=== PATIENT | female | born 1935 | race Caucasian/White ===

== ENCOUNTER 2017-10-11 17:30 | Inpatient (IN) ==
[2017-10-11] MEDS ORDERED: VANCOMYCIN - PHARMACY CONSULT MC ONE (17:46)
[2017-10-11] MEDS ORDERED: ONDANSETRON 4 MG/2 ML INJECTION IVP PRN (17:49)
[2017-10-11] MEDS: SALINE FLUSH 10ml SYRINGE IVF PRN (19:08)
[2017-10-11] MEDS: NS FLUSH BAG 500ml IV PRN (19:09)
[2017-10-11] MEDS: PIPERACILLIN/TAZOBACTAM 3.375 GM in NS 100 ML IV SCH (19:09)
--- NOTE | 2017-10-11 19:19 | History & Physical Report ---
History of Present Illness Date: 10/11/17 Chief complaint: abdominal pain HPI: Mrs. Layton is an 82-year-old patient of Dr. Fernando who presented to his office today for instruction of Lovenox injections. When she lifted up her shirt to show the nurse the area where she had been having some pain and swelling from her recent paracentesis, she noticed significant erythema that she had not noticed before. Dr. Fernando was summoned to see the patient and contacted Dr. Butler for a direct admission for treatment of abdominal wall cellulitis/ possible peritonitis. 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 She has been to see Dr. Alvarez who has recommended palliative course of chemotherapy. Has not yet started chemotherapy and is scheduled to get her port put in on 10/16/17. She had a paracentesis performed on 10/08/17 with removal of 1400 cc of fluid. Review of Systems All systems PM: 10-point ROS was reviewed, no additional remarkable complaints except (pain in abdomen with palpation or movement) Past Medical History Medical History: Medical History (Last Updated 10/10/17 @ 15:01 by Vadim Washington MD) Pleural effusion (Chronic) Lung nodule (Chronic) Primary cancer of peritoneum (Chronic) Peritoneal caner Date at Diagnosis- 09/10/2017 age at diagnosis- 81 TNM staging- T1c3, NX, pM1b, abdomen, Staging type- Clinical FIGO staging- IVB Stage at diagnosis- IVB Histology- Adenocarcinoma, grade x Breast cancer (Chronic) Date of Diagnosis- 06/20/2011 Location- Right breast upper-outer quadrant Stage at Diagnosis- 0, DCIS TNM staging- TIS Clinical N, N0, M0 Fracture of pelvis (Acute) Onset Date: ~04/2016 Osteoporosis (Chronic) Onset Date: ~2001 Has osteoporosis with poor tolerance of Evista and Fosamax. 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 * Colonoscopy - 04/[address] Adonis Fernando [place] [facility] [place]. * Right Cataract removal - ~ 2012 in [place], [place]. * Hysteroscopy and BSO - 2012 - in [place], [place]. Cystic ovarian disease. * Mastectomy right breast - [address] Barrera [place] [facility] [place], [place] For ductal carcinoma in situ. * Laparoscopic Cholecystectomy - [address] Cates at [facility] [place]. * Left breast biopsy 1997 - at [facility] [place], [place]. Hyperplasia. * Rectocele repair - 1979 at [facility] in [place], [place]. Family History: Family History Father , Age 94 Cardiomegaly Arrhythmia Mother , 95 High blood pressure Early onset Alzheimer's dementia Brother , age 69 - Unknown cause Atrial fibrillation Family History: As Above - Social History Smoking status: Never smoker Alcohol intake frequency: does not drink Household members: spouse Current occupational status: retired Current residence: Apartment/Private Home Social history: Dr Fernando - PCP Dr. Alvarez - onc Medications Home Medications Medication Instructions Recorded Confirmed Type Milk of Magnesia (Magnesium 5 ml PO HS ml 09/25/16 10/10/17 History hydroxide) 400 mg/5 mL oral suspension aspirin 81 mg chewable tablet 1 tab PO Q2D tab 09/25/16 10/10/17 History multivitamin with minerals tablet 1 tab-cap PO DAILY tab 09/25/16 10/10/17 History omega 0-vbg-zly-fish oil 1,000 mg 1 cap PO Q2D cap 09/25/16 10/10/17 History (120 mg-180 mg) capsule Xanax (alprazolam) 0.25 mg tablet 0.25 mg PO BID PRN #60 tab 12/24/16 10/10/17 Rx Prolia 60 mg/mL subcutaneous 60 mg SQ [id number] #1 ml NS 02/27/17 10/10/17 Rx syringe Atenolol [Tenormin] 25 mg PO BID 04/30/17 10/10/17 History digoxin 125 mcg tablet 125 mcg PO DAILY #90 tab 09/11/17 10/10/17 Rx Calcium 500 + D [Os Hector-D 500] 2 tab PO DAILY 10/07/17 10/10/17 History Ibuprofen [Advil] 200 mg PO Q6H PRN 10/07/17 10/10/17 History Losartan Potassium [Cozaar] 1 - 2 tab PO DAILY 10/07/17 10/10/17 History Warfarin Sodium [Coumadin] See Label Instructions PO DAILY 10/08/17 10/10/17 Rx #90 tab Prevacid (Lansoprazole) 15 mg 15 mg PO BID PRN cap 10/10/17 10/10/17 History capsule,delayed release enoxaparin 60 mg/0.6 mL 60 mg SQ DAILY #5 each 10/11/17 Rx subcutaneous syringe Allergies Allergy/AdvReac Type Severity Reaction Status Date / Time alendronate sodium AdvReac Intermediate Headache Verified 10/11/17 19:32 [From Fosamax] and nausea raloxifene [From Evista] AdvReac Intermediate Headache Verified 10/11/17 19:32 gluten AdvReac Mild NAUSEA/ABD Verified 10/11/17 19:32 DISCOMFORT Exam Vital Signs: Temperature 97.0 F 10/11/17 18:39 Pulse Rate 90 10/11/17 18:39 Respiratory Rate 18 10/11/17 18:39 Blood Pressure 145/66 H 10/11/17 18:39 Pulse Oximetry 100 10/11/17 18:39 - Constitutional Present: no acute distress, well nourished, well developed - Routine HEENT Exam Head: Present: normocephalic, atraumatic Eye: Present: EOMI, PERRL ENT: Present: mucous membranes moist, oropharynx clear - Routine Neck Exam Present: supple. Absent: lymphadenopathy, thyromegaly - Routine Respiratory Exam Present: CTA bilaterally. Absent: wheezes - Routine Cardiovascular Exam Present: RRR, no murmur - Routine Abdominal Exam Present: soft, normoactive bowel sounds, tenderness (RLQ. Pt has erythma and warmth in the RLQ and suprapubic area extending to the R upper thigh. She has signifcant tenderness with palpation. She has a firm area centrally which is extremely tender to palpation. ). Absent: distended - Routine Extremities Exam Present: no edema, normal capillary refill - Routine Skin Exam Present: dry, warm - Routine Neurological Exam Present: alert, oriented X3, CN II-XII intact - Routine Psychiatric Exam Present: normal affect, cooperative Results - Labs CBC & Chem 7: 10/11/17 18:51 10/11/17 18:51 Assessment and Plan Assessment and Plan: Assessment Abdominal wall cellulitis w/ possible abscess and/or peritonitis Peritoneal adenocarcinoma Pleural effusion Lung nodule Primary cancer of peritoneum Date at Diagnosis- 09/10/2017 age at diagnosis- 81 TNM staging- T1c3, NX, pM1b, abdomen, Staging type- Clinical FIGO staging- IVB Stage at diagnosis- IVB Histology- Adenocarcinoma, grade x Breast cancer Date of Diagnosis- 06/20/2011 Location- Right breast upper-outer quadrant Stage at Diagnosis- 0, DCIS TNM staging- TIS Clinical N, N0, M0 Fracture of pelvis Onset Date: ~04/2016 Osteoporosis Onset Date: ~2001 Hypertension Chronic atrial fibrillation snf (current) use of anticoagulants Genital atrophy of female Gluten intolerance Plan Admit, IP. Stay expected to exceed two overnights given her abdominal wall infection and comorbidities. Check labs: CBC, CMP, CRP, Lactate, LDH, Mg, Procalcitonin, CA125, BC x2, Dig level, UA Start vancomycin and Zosyn for antimicrobial coverage of abdominal cellulitis vs peritonitis Holding Coumadin for upcoming port placement. Lovenox 60mg BID for a-fib/VTE ppx. Currently NPO for abd/pelvic CT. Gluten free diet after CT. NS at 100cc/hr. Full Code PCP - Dr. Fernando DVT Prophylaxis: SCD's Resuscitation Status: Full Code (does not wish for prolonged intubation) - Physician Narrative Physician: Steve Butler MD Narrative: Date: 10/11/17 Time: 2005 Have independently interviewed and examined pt. Chart reviewed. Case discussed with Dr Fernando, Dr Irvin, and my PA. Care plan developed with my supervision; agree with above. Had therapeutic paracentesis on 10/08 secondary to increasing ascities. Tolerated procure well, but noted some incisional discomfort afterward. That area stay mildly uncomfortable since. More fullness and pain to RLQ near incisional sight. Not having chills, but noticed slight temp elevation today. Went to clinic to have Lovenox injection and then found redness to skin across RLQ extending into vulvar area and down leg. Elevated mass at site, tender to palpation. Does have discomfort in RLQ with movement of right leg. No recent trauma. Breathing well (improved post paracentesis). No chest pressure or palpitations. No nausea, but appetite has been decreasing. Is to have port placement next week so she can start palliative chemotherapy. Lungs: clear bilaterally CV: irregularly irregular EXT: no edema MSE: awake alert appropriate AB: Diffuse fine erythema of fight lower quadrant. Does extend down right leg. Noticeable mass about size of palm, raise about 1 cm, with healed incisional wound at center consistent with recent paracentesis. No purulent material expressed. Very tender to palpation and warm to touch. Plan: Inpatient treatment for suspected ab wall abscess with surrounding cellulitis. Zosyn/Vanco for skin coverage. With underlying peritoneal CA with obtain CT ab/pelvis with oral/IV contrast to further identify ab wall mass. Case discussed with Dr Irvin (covering for Dr Alvarez) who will see patient in consultation. Suspect will need surgical incision and drainage if abscess identified. IVF for renal protection. Will start Lovenox for Afib and DVT prevention (at risk for CVT due to Cancer). Not seeing signs of sepsis at this time. Monitor tele and lab. Full code per her requests. Care to return to Dr Fernando at time of discharge from [facility] Hospital Course Summary Disclaimer: The visit summary below is not to be considered part of the above Progress Note. Hospital Course: 10/11/17 Admit, IP. Stay expected to exceed two overnights given her abdominal wall infection and comorbidities. Check labs: CBC, CMP, CRP, Lactate, LDH, Mg, Procalcitonin, CA125, BC x2, Dig level, UA. Start vancomycin and Zosyn for antimicrobial coverage of abdominal cellulitis vs peritonitis. Holding Coumadin for upcoming port placement. Lovenox 60mg BID for a-fib/VTE ppx. Currently NPO for ab/pelvic CT. Gluten free diet after CT. NS at 100cc/hr. Full Code PCP - Dr. Fernando
[2017-10-11] MEDS ORDERED: NS 1,000 ML IV SCH (19:45)
[2017-10-11] MEDS ORDERED: SALINE FLUSH 10ml SYRINGE ONE (19:56)
[2017-10-11] MEDS ORDERED: IOHEXOL 300mg/ml 75ml INJECTION ONE (19:56)
[2017-10-11] MEDS ORDERED: PANTOPRAZOLE 20 MG TABLET PO PRN (20:24)
[2017-10-11] MEDS ORDERED: ALPRAZolam 0.25 MG TABLET PO PRN (20:24)
[2017-10-11] MEDS ORDERED: ACETAMINOPHEN 325 MG TABLET PO PRN (20:25)
[2017-10-11] MEDS ORDERED: BISACODYL 10 MG SUPPOSITORY RECTALLY PRN (20:26)
[2017-10-11] MEDS ORDERED: POLYETHYL GLYCOL 3350 17gm PACKET PO PRN (20:26)
[2017-10-11] MEDS ORDERED: PROCHLORPERAZINE 10 MG/2 ML INJECTION IVP PRN (20:26)
[2017-10-11] MEDS ORDERED: ENOXAPARIN 40 MG/0.4 ML INJECTION SQ SCH (21:00)
[2017-10-11] MEDS: ATENOLOL 25 MG TABLET PO SCH (22:25)
[2017-10-12] MEDS: PIPERACILLIN/TAZOBACTAM 3.375 GM in NS 100 ML IV SCH ×3 (02:20→18:50)
[2017-10-12] MEDS ORDERED: PANTOPRAZOLE 20 MG TABLET PO PRN (07:45)
[2017-10-12] MEDS ORDERED: CALCIUM 500 + VIT D 200 TABLET PO SCH (09:00)
[2017-10-12] MEDS ORDERED: LOSARTAN 50 MG TABLET PO SCH (09:00)
[2017-10-12] MEDS ORDERED: ENOXAPARIN 60 MG/0.6 ML INJECTION SQ SCH (09:15)
[2017-10-12] MEDS: DIGOXIN 125 MCG TABLET PO SCH (09:48)
[2017-10-12] MEDS: OMEGA-3 ACID ESTERS 1 GM CAPSULE PO SCH (09:48)
[2017-10-12] MEDS: MULTI-VIT + MINERAL (Opti-gen) TABLET PO SCH (09:48)
[2017-10-12] MEDS: ATENOLOL 25 MG TABLET PO SCH ×3 (09:48→21:26)
--- NOTE | 2017-10-12 10:31 | Progress Note ---
- Date 10/12/17 Subjective: Raine is about the same as yesterday. She still has a fair amount of pain and tenderness to her right pubis area and this makes movement of her right leg difficult. She states that the degree of erythema is about the same. She denies fever/chills this am. No SOA, chest pain, abd pain, or nausea. Objective Vital signs: Temperature 98.7 F 10/12/17 07:46 Pulse Rate 68 10/12/17 09:48 Respiratory Rate 16 10/12/17 07:46 Blood Pressure 114/65 10/12/17 07:46 Pulse Oximetry 96 10/12/17 07:46 Height/Weight/BMI: Height 1.69 m Weight 61 kg Body Mass Index 20.3 - Constitutional Present: no acute distress, well nourished, well developed, thin - Routine HEENT Exam Head: Present: normocephalic - Routine Respiratory Exam Present: CTA bilaterally - Routine Cardiovascular Exam Present: S1, S2, irregularly irregular - Routine Abdominal Exam Present: soft, normoactive bowel sounds Comments: Right lower pelvic indurated mass, not fluctuant, highly tender, warm to touch and erythematous. Erythema spreads distally into both thighs but is not as bright on the legs comparatively. - Routine Extremities Exam Present: no edema - Routine Skin Exam Present: intact, dry, warm, rash (see above) Results - Labs CBC & Chem 7: 10/12/17 03:53 10/12/17 03:53 Microbiology Results: Microbiology 10/11/17 18:55 Peripheral/Iv Start Blood Culture - Preliminary Culture Initiated - Results Pending 10/11/17 18:51 Peripheral/Iv Start Blood Culture - Preliminary Culture Initiated - Results Pending Assessment and Plan Assessment and Plan: Assessment Abdominal wall cellulitis w/ possible abscess and/or peritonitis Peritoneal adenocarcinoma Pleural effusion Lung nodule Primary cancer of peritoneum Date at Diagnosis- 09/10/2017 age at diagnosis- 81 TNM staging- T1c3, NX, pM1b, abdomen, Staging type- Clinical FIGO staging- IVB Stage at diagnosis- IVB Histology- Adenocarcinoma, grade x Breast cancer Date of Diagnosis- 06/20/2011 Location- Right breast upper-outer quadrant Stage at Diagnosis- 0, DCIS TNM staging- TIS Clinical N, N0, M0 Fracture of pelvis Onset Date: ~04/2016 Osteoporosis Onset Date: ~2001 Hypertension 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 Preliminary report shows fluid density in right lower abdominal wall measuring 1.8x6 cm transverse and 6.5 cm CC. This may represent a rectus sheath hematoma or fluid containing hernia, or infection. CT also shows mild right hydronephrosis. She has a moderate amount of ascites with peritoneal thickening. There are also tiny nodules in the lung bases. Continue vancomycin and Zosyn for antimicrobial coverage of abdominal cellulitis vs peritonitis. Consult Dr. العراقي. WBC normal at 7.1. Afebrile. CRP 53, recheck in am. Holding Coumadin for upcoming port placement. Lovenox 60mg for a-fib/VTE ppx. A -fib with variable rates, 48-90. Diet advanced. DC IVF. D/W Dr. Butler. DVT Prophylaxis: Lovenox GI Prophylaxis: Protonix Resuscitation Status: Full Code - Time spent with patient Time with patient PN: 25 minutes - Physician Narrative Physician: Steve Butler MD Narrative: Date: 10/12/17 Time: 1353 Have independently interviewed and examined pt. Chart reviewed. Case discussed with Dr العراقي and my MEDIA RECONCILIATION SPECIALIST. Care plan developed with my supervision; agree with above. Doing better today. Reporting less pain to ab wall and leg-can move more without discomfort, not as tender to touch. Redness decreasing. No f/c. Not feeling the nausea she was yesterday. Breathing well-not SOA or congested. No chest pressure or pain. Lungs: decreased breath sound, no distress CV: irregularly irregular AB: soft nt/nd MSE: awake alert appropriate SKIN: interval decrease in intensity of erythema to ab wall/leg. Much less tender to palpation. Mass with slight decrease as well. Plan: Dr العراقي consulted and case discussed with him. He did do aspiration of mass-no purulent material found. Will continue with IV antibiotics for skin coverage. Monitor mass for changes. Oral intake at baseline, creatinine stable post contrast-can d/c IVF. Monitor lab. Continue with supportive care. Hospital Course Summary Disclaimer: The visit summary below is not to be considered part of the above Progress Note. Hospital Course: 10/11/17 Admit, IP. Stay expected to exceed two overnights given her abdominal wall infection and comorbidities. Check labs: CBC, CMP, CRP, Lactate, LDH, Mg, Procalcitonin, CA125, BC x2, Dig level, UA. Start vancomycin and Zosyn for antimicrobial coverage of abdominal cellulitis vs peritonitis. Holding Coumadin for upcoming port placement. Lovenox 60mg BID for a-fib/VTE ppx. Currently NPO for ab/pelvic CT. Gluten free diet after CT. NS at 100cc/hr. Full Code PCP - Dr. Fernando 10/12/17 CT scan personally reviewed. Preliminary report shows fluid density in right lower abdominal wall measuring 1.8x6 cm transverse and 6.5 cm CC. This may represent a rectus sheath hematoma or fluid containing hernia, or infection. CT also shows mild right hydronephrosis. She has a moderate amount of ascites with peritoneal thickening. There are also tiny nodules in the lung bases. Consult Dr. العراقي secondary to mass to abdominal wall. Dr Velázquez did aspirate mass - no purulent material expressed. Recommends continuing antibiotics and continued monitoring. Continue vancomycin and Zosyn for antimicrobial coverage of abdominal cellulitis. WBC normal at 7.1. Afebrile. CRP 53, recheck in am. Holding Coumadin for upcoming port placement. Lovenox 60mg for a-fib/VTE ppx. A -fib with variable rates, 48-90. Diet advanced. DC IVF as renal status stable post IV contrast and taking oral well..
--- NOTE | 2017-10-12 10:47 | Pharmacy Consult-Antibiotics ---
Pharmacy Consult-Vancomycin - Laboratory Information WBC 7.1 T/MM3 (4.5-11.0) 10/12/17 03:53 BUN 16.0 MG/DL (7-17) 10/12/17 03:53 Creatinine 0.7 mg/dL (0.7-1.2) 10/12/17 03:53 Procalcitonin < 0.05 NG/ML 10/11/17 18:51 - Consult Information vancomycin consult: 82 y.o. F started on Vancomycin protocol for Cellulitis of abdominal wall. goal trough level= 15 to 20 mcg/ml Will give Vancomycin 1.5 gm IV Q18H. Pharmacy will monitor and adjust, Thank you, Ching [facility]
[2017-10-12] MEDS ORDERED: ATENOLOL 25 MG TABLET PO PRN (11:23)
[2017-10-12] MEDS ORDERED: LOSARTAN 50 MG TABLET PO PRN (11:24)
--- NOTE | 2017-10-12 12:52 | Consultation ---
DATE OF SERVICE 10/12/2017 FINDINGS Mrs. Layton is an 82-year-old female whom I was asked to see today as a result of a possible abscess involving her right inguinal region with associated cellulitis. Mrs. 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 She apparently earlier this week had undergone a paracentesis through Radiology on Saturday. Patient states that she had more "pain with this one" than she did her original paracentesis. The patient states that when she had left she had noted pain and some swelling within her inguinal region that she had not noted on her first paracentesis. The patient states that she was scheduled to receive Lovenox injection through her primary care physician's office. She states that she had presented recently to her PCP's office for a Lovenox injection and when her "shirt was lifted up the doctor became concerned." She was found to have a marked element of redness and tenderness involving her lower abdomen. Patient was subsequently admitted to the hospital for further care. PAST MEDICAL HISTORY CHRONIC ILLNESSES/SYSTEM DISORDERS History for breast cancer. History for osteoporosis. History for hypertension. History for chronic atrial fibrillation. History for peritoneal carcinomatosis. PAST SURGICAL HISTORY Colonoscopy. Cataract extraction. Hysteroscopy and BSO. Right mastectomy. Laparoscopic cholecystectomy. Prior left breast biopsy. MEDICATIONS Milk of Magnesia on a p.r.n. basis. Aspirin. Multivitamin. Fish oil. Xanax. Prolia 60 mg/mL. Atenolol. Digoxin. Calcium. Ibuprofen. Losartan. Coumadin. Prevacid. Lovenox injections. For complete doses and frequencies please refer to EMR. ALLERGIES Fosamax. Evista. SOCIAL HISTORY The patient has no alcohol or tobacco use. FAMILY HISTORY Father at age 94 from probable heart disease. Mother at 95. She did have a component of Alzheimer and hypertension. Her brother passed at 69 of unknown causes. REVIEW OF SYSTEMS Ten-point review of systems was reviewed. No additional abnormalities noted except as stated above in HPI and Past Medical History. PHYSICAL EXAMINATION GENERAL: Patient is an 82-year-old female who did not appear to be in acute distress this morning. VITAL SIGNS: Temperature 98.7, pulse 68, respirations 16, blood pressure 114/64 , SAO2 96% on room air. HEENT: Normocephalic. Pupils are equally round and react to light and accommodation. CHEST: Clear to auscultation bilaterally. HEART: Regular rate and rhythm. Normal S1 and S2 without gallops, murmurs or clicks. ABDOMEN: Soft, nontender. Attention was focused to the lower abdomen. One could see her prior puncture site within the right inguinal region from her prior paracentesis. The entrance site appears to be a few centimeters above the inguinal ligament. There is significant erythema and an element of prominence involving the right inguinal region extending in towards the mons pubis region as well as onto the right medial thigh region. Palpation of this area does reveal an area of firmness. Skin is warm to the touch. The erythema , as stated above, does extend into the right medial thigh as well as over towards the right anterior iliac spine and mons pubis region. I was really unable to appreciate any fluctuant area but more of an area of firmness. EXTREMITIES: Without clubbing, cyanosis, or edema. NEURO: Cranial nerves II-XII grossly intact. Patient is without focal motor or sensory deficits. LABORATORY/RADIOGRAPHIC EVALUATION The patient had a CBC today and white count is 7.1. Hemoglobin is 12.2. BMP obtained and found to be without marked abnormalities. CT scan of her abdomen and pelvis was obtained. I did review this CT scan personally. One can see a density within the right inguinal region corresponding with her physical abnormality within the anatomic location of the lower aspect of the rectus sheath. To me this appears to be more consistent with that of a hematoma. It does not appear to be indicative of that of an abscess. Dictated report from our radiologist is pending at time of dictation. One also can see on CT scan evidence for her known abdominal carcinomatosis. ASSESSMENT 82-year-old female with abdominal carcinomatosis, status post paracentesis with development of probable hematoma within right inguinal region with associated cellulitis. PLAN Proceed with aspiration of right inguinal mass to rule out underlying abscess. Continue with ongoing antibiotic therapy for cellulitis. It was my recommendation to the patient that this morning we go ahead and proceed with aspiration of this mass within the right inguinal region to rule out an underlying abscess. I informed the patient and her that if I was able to aspirate noreen purulence that would go ahead at the bedside today and proceed with incision and drainage of the underlying abscess. If, on the other hand, there was no purulent material present upon aspiration would then continue with ongoing broad-spectrum antibiotics. The patient and her understood and agreed with proposed plan. Skin overlying the area of prominence and erythema was prepped with Betadine. 1% lidocaine was then injected overlying the area of concern. An 18-gauge needle was then introduced through the area of analgesia and into the underlying mass with aspiration. Some old blood was obtained but there was no evidence for noreen purulent material. Patient tolerated the procedure without difficulty. I informed the patient and her that there does not appear to be any evidence for an underlying abscess and I would recommend that we continue with ongoing broad- spectrum antibiotics. Hopefully over the next 24 to 48 hours this cellulitis will dissipate/resolve on its own. I agree with current antibiotic choice. Patient currently is on Zosyn 3.375 g IV q.8h. MTDD
--- NOTE | 2017-10-12 13:42 | Consult Note ---
Oncology HPI - Data of Consult Patient: known to practice within the last 3 years Consult date: 10/12/17 Requesting Physician: Steve Butler MD Primary Care Provider: Adonis Fernando MD - Consult Narrative Reason for consult: abdominal carcinomatosis History of present illness: August of this year the patient developed increasing abdominal girth. She underwent paracentesis that showed adenocarcinoma. CEA 125 was 1600. She was seen by Dr. Alvarez with the plan to have Port-A-Cath followed by initiation of palliative chemotherapy with carboplatinum and Taxol. Port-A-Cath was scheduled to be done next week. Patient has chronic atrial fibrillation and anticoagulated with Coumadin now with Lovenox. She had paracentesis on 10/02/17. Following the paracentesis she had increasing pain in the right inguinal area right groin. She presented to Dr. Fernando's office yesterday and was found to have redness and swelling extending down into the right thigh and up the abdominal wall. She was admitted on 10/11/17 and begun on antibiotics. She was seen by Dr. العراقي today and he did an aspiration of the area of swelling and obtained old blood with no noreen purulent material Review of Systems - Constitutional Constitutional: Present: chills, fatigue, fever(s) - EENT Eyes: Absent: pain Nose: Absent: nosebleeds Mouth/Throat: Absent: sore throat, sores - Cardiovascular Cardiovascular: Present: palpitations. Absent: chest pain - Respiratory Respiratory: Absent: cough, dyspnea - Gastrointestinal Gastrointestinal: Present: early satiety, nausea, other (abdominal fullness) - Genitourinary Genitourinary: Absent: hematuria (nocturia 2) - Musculoskeletal Musculoskeletal: Present: myalgias - Integumentary/Breasts Integumentary: Present: rash. Absent: alopecia - Neurological Neurological: Absent: abnormal speech, headache(s) - Endocrine Endocrine: Present: palpitations - Hematologic/Lymphatic Hematologic/Lymphatic: Present: easy bleeding, easy bruising PFS Patient Stated Medical History Migraine Yes: OCCASIONAL Cataracts Yes: right removed Cardiac Arrhythmia Yes: at.fib. Hypertension Yes Sleep Apnea No Ulcer Yes Other GI Yes: abdominal cancer-primary peritoneal carcinoma Osteoarthritis Yes Other Musculoskeletal Yes: hx fractured pelvis and left wrist Blood Transfusions Yes: years ago Post Menopausal Yes Clinic Medical History (Last Updated 10/10/17 @ 15:01 by Vadim Washington MD) Pleural effusion (Chronic Medical) Lung nodule (Chronic Medical) Primary cancer of peritoneum (Chronic Medical) Peritoneal caner Date at Diagnosis- 09/10/2017 age at diagnosis- 81 TNM staging- T1c3, NX, pM1b, abdomen, Staging type- Clinical FIGO staging- IVB Stage at diagnosis- IVB Histology- Adenocarcinoma, grade x Breast cancer (Chronic Medical) Date of Diagnosis- 06/20/2011 Location- Right breast upper-outer quadrant Stage at Diagnosis- 0, DCIS TNM staging- TIS Clinical N, N0, M0 Fracture of pelvis (Acute Medical ~04/2016) Osteoporosis (Chronic Medical ~2001) Has osteoporosis with poor tolerance of Evista and Fosamax. 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 * Colonoscopy - 04/[address] Adonis Fernando at [facility] in [place], [place]. * Right Cataract removal - ~ 2012 in [place], [place]. * Hysteroscopy and BSO - 2012 - in [place], [place]. Cystic ovarian disease. * Mastectomy right breast - [address] Barrera [address] [facility] in [place], [place]. ductal carcinoma in situ. * Laparoscopic Cholecystectomy - [address] Cates [address] [facility] in [place], [place]. * Left breast biopsy 1997 - at [facility] in [place], [place]. Hyperplasia. * Rectocele repair - 1979 at [facility] in [place], [place]. Family History: Family History (Last Updated 10/10/17 @ 14:21 by Lisa Crook) Father , Age 94 Cardiomegaly Arrhythmia Mother , 95 High blood pressure Early onset Alzheimer's dementia Brother , age 69 - Unknown cause Atrial fibrillation Son at [place]. Probable alcohol related - Social History Smoking status: Never smoker second hand exposure: No Substance use type: does not use Alcohol intake: never Alcohol intake frequency: does not drink Housing: house Household members: spouse Current occupational status: retired Does patient use chewing tobacco?: No Current residence: Apartment/Private Home Medications Home Medications Medication Instructions Recorded Confirmed Type Milk of Magnesia (Magnesium 5 ml PO HS ml 09/25/16 10/10/17 History hydroxide) 400 mg/5 mL oral suspension aspirin 81 mg chewable tablet 1 tab PO Q2D tab 09/25/16 10/10/17 History multivitamin with minerals tablet 1 tab-cap PO DAILY tab 09/25/16 10/10/17 History omega [id number] oil 1,000 mg 1 cap PO Q2D cap 09/25/16 10/10/17 History (120 mg-180 mg) capsule Xanax (alprazolam) 0.25 mg tablet 0.25 mg PO BID PRN #60 tab 12/24/16 10/10/17 Rx Prolia 60 mg/mL subcutaneous 60 mg SQ [id number] #1 ml NS 02/27/17 10/10/17 Rx syringe Atenolol [Tenormin] 25 mg PO BID 04/30/17 10/10/17 History digoxin 125 mcg tablet 125 mcg PO DAILY #90 tab 09/11/17 10/10/17 Rx Calcium 500 + D [Os Hector-D 500] 2 tab PO DAILY 10/07/17 10/10/17 History Ibuprofen [Advil] 200 mg PO Q6H PRN 10/07/17 10/10/17 History Losartan Potassium [Cozaar] 1 - 2 tab PO DAILY 10/07/17 10/10/17 History Warfarin Sodium [Coumadin] See Label Instructions PO DAILY 10/08/17 10/10/17 Rx #90 tab Prevacid (Lansoprazole) 15 mg 15 mg PO BID PRN cap 10/10/17 10/10/17 History capsule,delayed release enoxaparin 60 mg/0.6 mL 60 mg SQ DAILY #5 each 10/11/17 Rx subcutaneous syringe Allergies Allergy/AdvReac Type Severity Reaction Status Date / Time alendronate sodium AdvReac Intermediate Headache Verified 10/11/17 19:32 [From Fosamax] and nausea raloxifene [From Evista] AdvReac Intermediate Headache Verified 10/11/17 19:32 gluten AdvReac Mild NAUSEA/ABD Verified 10/11/17 19:32 DISCOMFORT Exam Vital signs: Temperature 98.7 F 10/12/17 07:46 Pulse Rate 68 10/12/17 09:48 Respiratory Rate 16 10/12/17 07:46 Blood Pressure 114/65 10/12/17 07:46 Pulse Oximetry 96 10/12/17 07:46 - Constitutional no acute distress, well developed - Routine HEENT Exam Head: Present: normocephalic Eye: Present: EOMI, PERRL ENT: Present: mucous membranes moist - Routine Neck Exam Present: supple. Absent: lymphadenopathy - Routine Respiratory Exam Present: CTA bilaterally. Absent: rales - Routine Cardiovascular Exam Present: no murmur. Absent: RRR - Routine Abdominal Exam Present: soft, tenderness, distended Comments: Redness right lower one half of abdomen with edema of skin. Edema and redness extending down into the right thigh over the femoral vessels. - Routine Back/Spine/Pelvis Exam Back/Spine: Absent: muscle spasm - Routine Skin Exam Present: dry, warm Comments: Redness and swelling present in the right abdominal wall extending down into the right upper thigh - Routine Neurological Exam Present: alert, CN II-XII intact - Routine Psychiatric Exam Present: normal affect Oncology Results - Labs CBC & Chem 7: 10/12/17 03:53 10/12/17 03:53 Labs: Short CBC 10/11/17 10/12/17 Range/Units 18:51 03:53 WBC 7.5 7.1 (4.5-11.0) T/MM3 Hgb 12.7 12.2 (12-16) GM/DL Hct 38.5 37.9 (36-46) % Plt Count 250 261 (130-400) T/MM3 [facility] 10/11/17 10/12/17 18:51 03:53 Sodium 138 138 Potassium 3.8 4.2 Chloride 102 105 Carbon Dioxide 25 24 BUN 22.0 H 16.0 Creatinine 0.8 0.7 Glucose 129 H 89 Calcium 9.3 8.5 D Liver Function 10/11/17 Range/Units 18:51 Total Bilirubin 0.90 (0.20-1.30) MG/DL AST 31 (14-36) U/L ALT 15 (1-35) U/L Alkaline Phosphatase 67 (38-126) U/L Albumin 3.9 (3.5-5.0) g/dL Urine 10/11/17 Range/Units 19:22 Urine Color Yellow (YELLOW) Urine Clarity Clear Urine pH 6.0 (5.0-8.0) Ur Specific [place] 1.020 (1.015-1.025) Urine Protein Negative (NEGATIVE) Urine Glucose (UA) Negative (NEGATIVE) - Impressions Laboratory Tests 09/17/17 10/11/17 10/11/17 15:13 18:51 18:51 WBC Hgb Plt Count Neut % (Auto) Neut # (Auto) 5.7 Creatinine Calcium Lactate Dehydrogenase 478 C-Reactive Protein 53.0 H CA 125 Antigen 1620 H 10/11/17 10/12/17 10/12/17 18:51 03:53 03:53 WBC 7.1 Hgb 12.2 Plt Count 261 Neut % (Auto) 70.1 H Neut # (Auto) 5.0 Creatinine 0.7 Calcium 8.5 D Lactate Dehydrogenase C-Reactive Protein CA 125 Antigen 1800 H - Imaging and Cardiology CT scan - abdomen Additional comments: Images reviewed. There is probable hematoma or soft tissue mass present in the right lower abdomen. Significant amount of distention of the rectal area. Ascites is present. Assessment and Plan Assessment and Plan: Cellulitis of right lower quadrant after paracentesis. From the skin reaction suspect it would be a Streptococcus. Currently on antibiotics and improving 2. Abdominal carcinomatosis with positive ascitic fluid for adenocarcinoma and elevated CEA 125 of 1800 presently. This is consistent with an ovarian carcinoma. She did have cystic ovaries removed in 2000 with negative pathology per her report. Will await vascular access prior to starting therapy. Plan is palliative chemotherapy with carboplatinum and Taxol. Infection will need to be in control before this is initiated. Also vascular access will be a significant aspect of her care as her veins appear to be fairly small 3. Need for vascular access. This cannot be placed with active infection. Hopefully later next week this will be able to be placed. 4. Atrial fibrillation with anticoagulation Recommendations antibiotics Supportive care Vascular access when infection controlled Chemotherapy after vascular access obtained
[2017-10-12] MEDS: LOSARTAN 50 MG TABLET PO SCH (21:25)
[2017-10-12] MEDS: CALCIUM 500 + VIT D 200 TABLET PO SCH (21:25)
[2017-10-13] MEDS: ATENOLOL 25 MG TABLET PO SCH ×3 (00:14→21:21)
[2017-10-13] MEDS: LOSARTAN 50 MG TABLET PO SCH ×2 (00:16→21:22)
[2017-10-13] MEDS: PIPERACILLIN/TAZOBACTAM 3.375 GM in NS 100 ML IV SCH ×3 (02:26→18:06)
[2017-10-13] MEDS: ENOXAPARIN 60 MG/0.6 ML INJECTION SQ SCH (08:59)
[2017-10-13] MEDS: CALCIUM 500 + VIT D 200 TABLET PO SCH ×2 (08:59→21:22)
[2017-10-13] MEDS: DIGOXIN 125 MCG TABLET PO SCH (08:59)
[2017-10-13] MEDS: MULTI-VIT + MINERAL (Opti-gen) TABLET PO SCH (08:59)
[2017-10-13] MEDS: SALINE FLUSH 10ml SYRINGE IVF PRN ×2 (09:00→18:07)
--- NOTE | 2017-10-13 09:36 | Progress Note ---
- Date 10/13/17 Subjective: Patient seen resting in bed this morning. She continues to have pain in the RLQ with movement or palpation to the area, but reports pain is definitely improved from admission. No fever or chills. No SOA, CP, n/v. Objective Vital signs: Temperature 97.8 F 10/13/17 07:48 Pulse Rate 61 10/13/17 08:59 Respiratory Rate 20 10/13/17 07:48 Blood Pressure 113/56 10/13/17 07:48 Pulse Oximetry 97 10/13/17 07:48 Height/Weight/BMI: Height 1.69 m Weight 59.7 kg Body Mass Index 20.3 - Constitutional Present: no acute distress, well nourished, well developed - Routine HEENT Exam Head: Present: normocephalic, atraumatic - Routine Respiratory Exam Present: CTA bilaterally. Absent: wheezes - Routine Cardiovascular Exam Present: no murmur, irregular rhythm - Routine Abdominal Exam Present: soft, non distended Comments: area of erythema has significantly improved. No longer has erythema on the R upper thigh. Still has firm, very tender area in RLQ w/ bandage over the area of needle aspiration with surrounding erythema. - Routine Extremities Exam Present: no edema, normal capillary refill - Routine Skin Exam Present: dry, warm - Routine Neurological Exam Present: alert, oriented X3 - Routine Lymphatic Exam Lymphatic: Absent: adenopathy - Routine Psychiatric Exam Present: normal affect, cooperative Results - Labs CBC & Chem 7: 10/13/17 04:00 10/13/17 04:00 Microbiology Results: Microbiology 10/11/17 18:55 Peripheral/Iv Start Blood Culture - Preliminary No Growth After 1 Day 10/11/17 18:51 Peripheral/Iv Start Blood Culture - Preliminary No Growth After 1 Day Assessment and Plan Assessment and Plan: Assessment Abdominal wall cellulitis w/ possible abscess and/or peritonitis Peritoneal adenocarcinoma Pleural effusion Lung nodule Primary cancer of peritoneum Date at Diagnosis- 09/10/2017 age at diagnosis- 81 TNM staging- T1c3, NX, pM1b, abdomen, Staging type- Clinical FIGO staging- IVB Stage at diagnosis- IVB Histology- Adenocarcinoma, grade x Breast cancer Date of Diagnosis- 06/20/2011 Location- Right breast upper-outer quadrant Stage at Diagnosis- 0, DCIS TNM staging- TIS Clinical N, N0, M0 Fracture of pelvis Onset Date: ~04/2016 Osteoporosis Onset Date: ~2001 Hypertension 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 Continue vancomycin and Zosyn. Day #3. Afebrile. WBC 5.6. Holding Coumadin for upcoming port placement which will be done following resolution of infection. Lovenox 60mg for a-fib/VTE ppx. Chemo to start following port placement. DVT Prophylaxis: Lovenox Resuscitation Status: Full Code - Time spent with patient Time with patient PN: 25 minutes - Physician Narrative Physician: Steve Butler MD Narrative: Date: 10/13/17 Time: 1127 Have independently interviewed and examined pt. Chart reviewed. Case discussed with my PA. Care plan developed with my supervision; agree with above. Doing okay today. Redness continues to decrease. Does note more discomfort to ab wall mass-feels secondary to aspiration yesterday. Not increasing in size. No f/c. Not having n/v; bowel stable. Breathing well. No chest pain. Lungs: clear CV: irregularly irregular AB: soft nt/nt MSE: awake alert Skin : continued decreased intensity of erythema. Plan: Continue antibiotics. Monitor abdominal mass for changes. Continue to follow lab. Hospital Course Summary Disclaimer: The visit summary below is not to be considered part of the above Progress Note. Hospital Course: 10/11/17 Admit, IP. Stay expected to exceed two overnights given her abdominal wall infection and comorbidities. Check labs: CBC, CMP, CRP, Lactate, LDH, Mg, Procalcitonin, CA125, BC x2, Dig level, UA. Start vancomycin and Zosyn for antimicrobial coverage of abdominal cellulitis vs peritonitis. Holding Coumadin for upcoming port placement. Lovenox 60mg BID for a-fib/VTE ppx. Currently NPO for ab/pelvic CT. Gluten free diet after CT. NS at 100cc/hr. Full Code PCP - Dr. Fernando 10/12/17 CT scan -Preliminary report shows fluid density in right lower abdominal wall measuring 1.8x6 cm transverse and 6.5 cm CC. This may represent a rectus sheath hematoma or fluid containing hernia, or infection. CT also shows mild right hydronephrosis. She has a moderate amount of ascites with peritoneal thickening. There are also tiny nodules in the lung bases. Consult Dr. العراقي secondary to mass to abdominal wall. Dr Velázquez did aspirate mass - no purulent material expressed. Recommends continuing antibiotics and continued monitoring. Continue vancomycin and Zosyn for antimicrobial coverage of abdominal cellulitis. WBC normal at 7.1. Afebrile. CRP 53, recheck in am. Holding Coumadin for upcoming port placement. Lovenox 60mg for a-fib/VTE ppx. A -fib with variable rates, 48-90. Diet advanced. DC IVF as renal status stable post IV contrast and taking oral well.. 10/13/18 Continue vancomycin and Zosyn. Day #3. Afebrile. WBC 5.6. Holding Coumadin for upcoming port placement which will be done following resolution of infection. Chemo to start following port placement.
--- NOTE | 2017-10-13 11:04 | CT Scan Report ---
Indication: Abdomina carcinomatosis - ? abscess PROCEDURE: CT abdomen pelvis w con: Encounter: Initial Comparison: CT abdomen and pelvis dated August 29, 2017 Technique: Axial CT images were performed through the abdomen and pelvis after the administration of intravenous contrast. Coronal and sagittal two-dimensional reformats. Automated Exposure Control and Iterative Reconstruction dose reducing techniques were utilized. Contrast: Omnipaque 300 73 mL Findings: Stable medial right lower lobe pulmonary nodule. The unenhanced liver shows mild bile duct dilatation probably related to age and prior cholecystectomy. No enhancing liver masses. The spleen, pancreas and adrenal glands are stable. There is new mild right hydronephrosis without clear obstructing lesion or stone. Bladder is grossly normal. Small to moderate amount of ascites. No evidence of a bowel obstruction or free air. In the right lower quadrant subcutaneous tissues in the region of recent paracentesis there is a subcutaneous fluid collection measuring 5.6 x 2.1 x 5.5 cm in size. This does not show clear rim enhancement or gas to confirm an abscess. There is induration of the subcutaneous tissues and subcutaneous edema nearby. Scattered areas of omental metastatic thickening with probable involvement of the transverse colon. Bone windows are unchanged. Impression: Right pelvic subcutaneous fluid collection could represent extravasated peritoneal fluid or hematoma related to recent paracentesis. There is no rim enhancement or gas to confirm an abscess at this point. There is surrounding soft tissue induration that may represent a superficial cellulitis. There is a preliminary report by [employer]. .
[2017-10-13] MEDS: NS FLUSH BAG 500ml IV PRN (18:06)
[2017-10-14] MEDS: ATENOLOL 25 MG TABLET PO SCH (00:48)
[2017-10-14] MEDS: PIPERACILLIN/TAZOBACTAM 3.375 GM in NS 100 ML IV SCH ×3 (02:19→19:20)
--- NOTE | 2017-10-14 06:33 | Progress Note ---
<Yeison Irvin - Last Filed: 10/14/17 06:31> Oncology Subjective More pain and discomfort at the right lower quadrant of the abdomen with increasing with redness and increasing edema Exam Vital signs: Temperature 98.0 F 10/14/17 00:00 Pulse Rate 63 10/14/17 02:21 Respiratory Rate 16 10/14/17 00:00 Blood Pressure 127/66 10/14/17 02:21 Pulse Oximetry 96 10/14/17 00:00 Oncology Results - Labs CBC & Chem 7: 10/13/17 04:00 10/13/17 04:00 - Impressions Laboratory Tests 10/11/17 10/11/17 10/11/17 18:51 18:51 18:51 WBC 7.5 Neut % (Auto) 75.3 H Neut # (Auto) 5.7 Creatinine Lactate Dehydrogenase 478 C-Reactive Protein 53.0 H CA 125 Antigen 1800 H 10/12/17 10/13/17 10/13/17 03:53 04:00 04:00 WBC 7.1 5.6 Neut % (Auto) 70.1 H 68.6 H Neut # (Auto) 5.0 3.9 Creatinine 0.8 Lactate Dehydrogenase C-Reactive Protein 49.8 H CA 125 Antigen Assessment and Plan Assessment and Plan: 1.Cellulitis of right lower quadrant after paracentesis. From the skin reaction suspect it would be a Streptococcus. Currently on antibiotics it was better on Saturday. Saturday it became more red in the abdominal area with less redness and edema in the thigh. Today there continues to be more redness, firmness, tenderness in the right lower quadrant. Consider ultrasound for further evaluation. 2. Abdominal carcinomatosis with positive ascitic fluid for adenocarcinoma and elevated CEA 125 of 1800 presently. This is consistent with an ovarian carcinoma. She did have cystic ovaries removed in 2000 with negative pathology per her report. Will await vascular access prior to starting therapy. Plan is palliative chemotherapy with carboplatinum and Taxol. Infection will need to be in control before this is initiated. Also vascular access will be a significant aspect of her care as her veins appear to be fairly small 3. Need for vascular access. This cannot be placed with active infection. Hopefully later next week this will be able to be placed. 4. Atrial fibrillation with anticoagulation Recommendations antibiotics Supportive care Antibiotics Consider ultrasound evaluation of right lower quadrant abdominal wall versus CT scan. Vascular access when infection controlled Chemotherapy after vascular access obtained - Time Spent With Patient Total time spent is greater than 50% in coordination of care (as documented) at patient's floor/unit and/or counseling patient: <Helena Haynes - Last Filed: 10/14/17 16:50> Oncology Subjective At time of my intake, redness persists, but has not worsened. Denies fever, chills. She is eating and drinking well. Normal stools and normal voiding. General: No fever, no night sweats Eyes: No redness, no pain, no diplopia ENT: No mouth sores, no trouble swallowing Cardiac: No chest pain no palpitations Pulmonary: No cough, no shortness of breath, no wheezing Abdomen: Intermittent pain, no nausea vomiting, no diarrhea or constipation : No urgency, frequency, dysuria, or hematuria Musculoskeletal: No arthritis, no myalgias Neurological: No headaches, no focal weakness Skin: No rash, no sores Psychiatric: No anxiety, no depression Exam Vital signs: Temperature 97.9 F 10/14/17 08:30 Pulse Rate 64 10/14/17 09:21 Respiratory Rate 16 10/14/17 08:30 Blood Pressure 147/67 H 10/14/17 08:30 Pulse Oximetry 98 10/14/17 08:30 - Constitutional no acute distress, well developed, cooperative - Routine HEENT Exam Head: Present: normocephalic Eye: Present: EOMI ENT: Present: mucous membranes moist - Routine Neck Exam Present: supple. Absent: lymphadenopathy - Routine Respiratory Exam Present: CTA bilaterally - Routine Cardiovascular Exam Present: RRR, no murmur - Routine Abdominal Exam Present: soft, normoactive bowel sounds, tenderness (RLQ/ ), distended (mildly ) - Routine Extremities Exam Present: no edema, full ROM - Routine Skin Exam Present: erythema (mild erythema RLQ/ does not extend below into thighs; has significanlty improved.), dry, warm Comments: erythema RLQ of abd; patient subjectively reports much improvement of redness - Routine Neurological Exam Present: alert, oriented X3, moving all extremities - Routine Psychiatric Exam Present: normal affect, cooperative Oncology Results - Labs CBC & Chem 7: 10/13/17 04:00 10/13/17 04:00 Assessment and Plan Assessment and Plan: Anion. Has been seen by surgeon; does not feel area is abscessed; feels is hematoma versus peritoneal fluid accumulation within the abdominal wall. Subjectively feeling improved. Will continue supportive care/antibiotics; will follow as outpatient. - Time Spent With Patient Total time spent is greater than 50% in coordination of care (as documented) at patient's floor/unit and/or counseling patient: less than 15 minutes
[2017-10-14 08:31] VITALS: O2SAT 98
[2017-10-14] MEDS: DIGOXIN 125 MCG TABLET PO SCH (09:21)
[2017-10-14] MEDS: ENOXAPARIN 60 MG/0.6 ML INJECTION SQ SCH (09:21)
[2017-10-14] MEDS: CALCIUM 500 + VIT D 200 TABLET PO SCH (09:21)
[2017-10-14] MEDS: OMEGA-3 ACID ESTERS 1 GM CAPSULE PO SCH (09:22)
[2017-10-14] MEDS: MULTI-VIT + MINERAL (Opti-gen) TABLET PO SCH (09:23)
--- NOTE | 2017-10-14 11:29 | Pharmacy Consult-Antibiotics ---
Pharmacy Consult-Vancomycin - Laboratory Information WBC 5.6 T/MM3 (4.5-11.0) 10/13/17 04:00 BUN 17.0 MG/DL (7-17) 10/13/17 04:00 Creatinine 0.8 mg/dL (0.7-1.2) 10/13/17 04:00 Procalcitonin < 0.05 NG/ML 10/11/17 18:51 Vancomycin Trough 12.67 ug/mL (15-20) L 10/14/17 04:04 - Consult Information vancomycin consult: day 4 82 y.o. F Vancomycin protocol for abdominal wall cellulitis w/ possible abscess and/or peritonitis Peritoneal adenocarcinoma. goal trough level= 15 to 20 mcg/ml This morning's vancomycin trough level = 12.67 mcg/ml Will slightly increase Vancomycin dose to Vancomycin 1.75 gm IV Q18H. Pharmacy will monitor and adjust, Thank you, Ching [facility]
--- NOTE | 2017-10-14 13:28 | Discharge Summary ---
Discharge Information Date of admission: 10/11/17 18:23 Attending Physician: Steve Butler MD Primary care physician: Adonis Fernando MD Consults: Consulting Provider: Yeison Irvin Reason For Exam: Primary peritoneal adenoca Consulting Provider: Vadim العراقي Reason For Exam: abd wall cellulitis, s/p paracentesis Discharge Diagnoses Abdominal wall cellulitis (improving) w/ probable hematoma vs extravasated peritoneal fluid from recent paracentesis. Associated conditions and complications Peritoneal adenocarcinoma Pleural effusion Lung nodule Primary cancer of peritoneum Date at Diagnosis- 09/10/2017 age at diagnosis- 81 TNM staging- T1c3, NX, pM1b, abdomen, Staging type- Clinical FIGO staging- IVB Stage at diagnosis- IVB Histology- Adenocarcinoma, grade x Breast cancer Date of Diagnosis- 06/20/2011 Location- Right breast upper-outer quadrant Stage at Diagnosis- 0, DCIS TNM staging- TIS Clinical N, N0, M0 Fracture of pelvis Onset Date: ~04/2016 Osteoporosis Onset Date: ~2001 Hypertension Chronic atrial fibrillation -currently on Lovenox in place of warfarin in anticipation of port placement intermediate (current) use of anticoagulants Genital atrophy of female Gluten intolerance - Procedures Procedures: Dr العراقي- Needle Aspiration: 10/12/17 Skin overlying the area of prominence and erythema was prepped with Betadine. 1% lidocaine was then injected overlying the area of concern. An 18-gauge needle was then introduced through the area of analgesia and into the underlying mass with aspiration. Some old blood was obtained but there was no evidence for noreen purulent material. Patient tolerated the procedure without difficulty. I informed the patient and her that there does not appear to be any evidence for an underlying abscess and I would recommend that we continue with ongoing broad-spectrum antibiotics. - Laboratory Labs: Admission Labs 10/11/17 10/11/17 10/11/17 18:51 18:51 18:51 WBC 7.5 RBC 3.87 L Hgb 12.7 Hct 38.5 Plt Count 250 Neut % (Auto) 75.3 H INR 1.07 Sodium 138 Potassium 3.8 Chloride 102 Carbon Dioxide 25 Anion Gap 11 BUN 22.0 H Creatinine 0.8 Glucose 129 H Magnesium 2.3 AST 31 ALT 15 Alkaline Phosphatase 67 C-Reactive Protein 53.0 H CA 125 10/11/17 18:51 CA 125 Antigen 1800 H Dismissal labs 10/13/17 10/13/17 04:00 04:00 WBC 5.6 RBC 3.65 L Hgb 11.8 L Hct 36.1 Plt Count 258 Neut % (Auto) 68.6 H Sodium 139 Potassium 4.1 Chloride 106 Carbon Dioxide 24 BUN 17.0 Creatinine 0.8 Glucose 85 Calcium 8.6 C-Reactive Protein 49.8 H - Microbiology Microbiology 10/11/17 18:51 Peripheral/Iv Start Blood Culture - Preliminary No Growth After 2 Days 10/11/17 18:55 Peripheral/Iv Start Blood Culture - Preliminary No Growth After 2 Days - Radiology Radiology: Date of Exam: 10/11/17 Indication: Abdomina carcinomatosis - ? abscess PROCEDURE: CT abdomen pelvis w con: Findings: Stable medial right lower lobe pulmonary nodule. The unenhanced liver shows mild bile duct dilatation probably related to age and prior cholecystectomy. No enhancing liver masses. The spleen, pancreas and adrenal glands are stable. There is new mild right hydronephrosis without clear obstructing lesion or stone. Bladder is grossly normal. Small to moderate amount of ascites. No evidence of a bowel obstruction or free air. In the right lower quadrant subcutaneous tissues in the region of recent paracentesis there is a subcutaneous fluid collection measuring 5.6 x 2.1 x 5.5 cm in size. This does not show clear rim enhancement or gas to confirm an abscess. There is induration of the subcutaneous tissues and subcutaneous edema nearby. Scattered areas of omental metastatic thickening with probable involvement of the transverse colon. Bone windows are unchanged. Impression: Right pelvic subcutaneous fluid collection could represent extravasated peritoneal fluid or hematoma related to recent paracentesis. There is no rim enhancement or gas to confirm an abscess at this point. There is surrounding soft tissue induration that may represent a superficial cellulitis. History of Present Illness HPI: Mrs. Layton is an 82-year-old patient of Dr. Fernando who presented to his office today for instruction of Lovenox injections. When she lifted up her shirt to show the nurse the area where she had been having some pain and swelling from her recent paracentesis, she noticed significant erythema that she had not noticed before. Dr. Fernando was summoned to see the patient and contacted Dr. Butler for a direct admission for treatment of abdominal wall cellulitis/ possible peritonitis. 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 She has been to see Dr. Alvarez who has recommended palliative course of chemotherapy. Has not yet started chemotherapy and is scheduled to get her port put in on 10/16/17. She had a paracentesis performed on 10/08/17 with removal of 1400 cc of fluid. Objective Vital signs: Temperature 97.9 F 10/14/17 08:30 Pulse Rate 64 10/14/17 09:21 Respiratory Rate 16 10/14/17 08:30 Blood Pressure 147/67 H 10/14/17 08:30 Pulse Oximetry 98 10/14/17 08:30 Height/Weight/BMI: Height 1.69 m Weight 59.9 kg Body Mass Index 20.3 - Constitutional Present: no acute distress, well nourished, well developed - Routine HEENT Exam Head: Present: normocephalic, atraumatic - Routine Respiratory Exam Present: CTA bilaterally. Absent: wheezes - Routine Cardiovascular Exam Present: no murmur, irregular rhythm - Routine Abdominal Exam Present: normoactive bowel sounds Comments: erythema is limited to the indurated, tender area within the RLQ/suprapubic region. Erythema on the R leg has resolved . - Routine Extremities Exam Present: no edema, normal capillary refill - Routine Skin Exam Present: dry, warm - Routine Neurological Exam Present: alert, oriented X3 - Routine Lymphatic Exam Lymphatic: Absent: adenopathy - Routine Psychiatric Exam Present: normal affect, cooperative Hospital Course This is a general summary of the patient's hospital course. For more details refer to the complete medical record. Hospital course: 10/11/17 Admit, IP. Stay expected to exceed two overnights given her abdominal wall infection and comorbidities. Check labs: CBC, CMP, CRP, Lactate, LDH, Mg, Procalcitonin, CA125, BC x2, Dig level, UA. Start vancomycin and Zosyn for antimicrobial coverage of abdominal cellulitis vs peritonitis. Holding Coumadin for upcoming port placement. Lovenox 60mg BID for a-fib/VTE ppx. Currently NPO for ab/pelvic CT. Gluten free diet after CT. NS at 100cc/hr. Full Code PCP - Dr. Fernando 10/12/17 CT scan -Preliminary report shows fluid density in right lower abdominal wall measuring 1.8x6 cm transverse and 6.5 cm CC. This may represent a rectus sheath hematoma or fluid containing hernia, or infection. CT also shows mild right hydronephrosis. She has a moderate amount of ascites with peritoneal thickening. There are also tiny nodules in the lung bases. Consult Dr. العراقي secondary to mass to abdominal wall. Dr العراقي did aspirate mass - no purulent material expressed. Recommends continuing antibiotics and continued monitoring. Continue vancomycin and Zosyn for antimicrobial coverage of abdominal cellulitis. WBC normal at 7.1. Afebrile. CRP 53, recheck in am. Holding Coumadin for upcoming port placement. Lovenox 60mg for a-fib/VTE ppx. A -fib with variable rates, 48-90. Diet advanced. DC IVF as renal status stable post IV contrast and taking oral well.. 10/13/17 Continue vancomycin and Zosyn. Day #3. Afebrile. WBC 5.6. Holding Coumadin for upcoming port placement which will be done following resolution of infection. Chemo to start following port placement. Final CT result: Right pelvic subcutaneous fluid collection could represent extravasated peritoneal fluid or hematoma related to recent paracentesis. There is no rim enhancement or gas to confirm an abscess at this point. There is surrounding soft tissue induration that may represent a superficial cellulitis. 10/14/17 Day #4 of vancomycin and Zosyn. Pt remains afebrile. Will DC home today on Augmentin 875mg BID. Discussed case with pt's PCP, Dr Fernando . He would like to see pt in f-u tomorrow in his clinic. Continue enoxaparin in place of warfarin in anticipation of port placement in the near future. See orders for details Time spent with patient: discharge greater than 30 minutes Resuscitation Status: Full Code Discharge Plan - Discharge Disposition Discharge Date: 10/14/17 Disposition: 01 Discharged Home, Self-Care *Condition: Stable Reason For Visit (Visit label in EMR): abdominal wall cellulitis - Discharge Medications *Discharge Medications: New Amox/Clav [Augmentin 875/125] 875 mg PO BID #20 tab Continue Losartan Potassium [Cozaar] 1 - 2 tab PO DAILY Calcium 500 + D [Os Hector-D 500] 2 tab PO DAILY Ibuprofen [Advil] 200 mg PO Q6H PRN PRN Reason: Prn Orders Atenolol [Tenormin] 25 mg PO BID aspirin 81 mg chewable tablet 1 tab PO Q2D tab multivitamin with minerals tablet 1 tab-cap PO DAILY tab omega [id number]-fish oil 1,000 mg (120 mg-180 mg) capsule 1 cap PO Q2D cap Milk of Magnesia (Magnesium hydroxide) 400 mg/5 mL oral suspension 5 ml PO HS ml Xanax (alprazolam) 0.25 mg tablet 0.25 mg PO BID PRN #60 tab PRN Reason: anxiety Prolia 60 mg/mL subcutaneous syringe 60 mg SQ [id number] #1 ml NS digoxin 125 mcg tablet 125 mcg PO DAILY #90 tab Prevacid (Lansoprazole) 15 mg capsule,delayed release 15 mg PO BID PRN cap enoxaparin 60 mg/0.6 mL subcutaneous syringe 60 mg SQ DAILY #5 each Discontinued Warfarin Sodium [Coumadin] See Label Instructions PO DAILY #90 tab - Discharge Packet/Instructions *Diet: regular diet *Activity: As tolerated *Pain Management/Treatment: Tylenol/ibuprofen as needed. *Wound Care: n/a Additional Instructions: You can get your next Lovenox shot in Dr Fernando's office tomorrow. Start your Augmentin antibiotic this evening with supper. *Expected Signs/Symptoms: Slow improvement *Notify Physician if: you develop fever or have increasing pain or new areas of redness surrounding the painful area in your abdomen *During Business Hours Contact: Dr Fernando's office *After Business Hours Contact: Dr Fernando's office and follow after hours instructions *Pending Lab/Results: Follow up w/Provider (blood cultures) - Referrals/Follow Up *Referrals/Follow Up: Adonis Fernando MD [Primary Care Provider] - 1 Day (APPOINTMENT ON 10/15 AT 11:00.) - Patient Handouts Patient Handouts: Cellulitis (GEN) - Dismissal Complete Discharge Instructions are:: Complete Physician Narrative - Narrative Physician: Steve Butler MD Attestation Narrative: Date: 10/14/17 Time: 8308 I have independently interviewed and examined patient prior to discharge. Chart reviewed. Case discussed with BASHIR and my PA. Care plan developed with my supervision; agree with above. Doing well today. No f/c. Erythema nearly resolved. AB wall mass stable. Minimal pain to this area. Diet stable. Breathing well. Lungs: clear bilaterally CV: irregularly irregular AB: soft nt/nd MSE: awake alert appropriate Plan: Medically stable for discharge to home. Continue with Augmentin for coverage. F/U with Dr Fernando tomorrow. See orders for details.
[2017-10-14 13:35] VITALS: BMI 20.9
--- NOTE | 2017-10-14 15:14 | Progress Note ---
DATE 10/14/2017 FINDINGS Mrs. Layton was seen earlier this morning on rounds. She states that she was feeling better but continued to have some discomfort within the right inguinal region. OBJECTIVE VITALS: Temperature 97.9, pulse 64, respirations 16, blood pressure 147/67, SaO2 98% on room air. HEENT: Normocephalic. Pupils are equally round and react to light and accommodation. CHEST: Clear to auscultation bilaterally. HEART: Regular rate and rhythm. Normal S1, S2, without gallops, murmurs or clicks. ABDOMEN: Soft, nontender. Attention was then focused to the area of concern within the right inguinal region. The prior erythema has almost completely dissipated at this time that was present overlying the mons pubis region, right inguinal region extending onto the right medial thigh. The area of prominence is also visibly improved. Palpation overlying the area of concern now reveals a hard discrete mass consistent with that of a hematoma beneath the "puncture site" of her prior paracentesis within the right inguinal region. There is no fluctuance to suggest an underlying abscess cavity. 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 PLAN I did review the now dictated report from her prior CT scan. Radiology now has also stated that he did not feel this was consistent with an abscess for there was no peripheral enhancement nor air/gas within the fluid collection. Their intuition was that this was either that of a hematoma or peritoneal fluid that had accumulated within the abdominal wall. From a surgical standpoint, I will go ahead and sign off the patient's care at this time. I would recommend that we continue with some p.o. antibiotics following her discharge given her marked cellulitis noted initially. If any further general surgical care is needed, please do not hesitate to recontact me if needed. DELD
[2017-10-14 15:55] VITALS: BP 96/55; PULSE 60; RESP 18; TEMP 98.1
== END 2017-10-14 20:50 | disposition home or self-care (01) | DRG 603 ==
LOC: MED 18:23
PROVIDERS: ADMIT Hospitalist; ATTEND Hospitalist